=== PATIENT | female | born 1990 | race American Indian/Alaskan Native ===

== ENCOUNTER 2017-04-05 13:51 | Emergency (ER) | payer BC, MEDICAID ==
[~2017-04-05] VITALS: Ht 162.6 cm; Wt 105.0 kg
[2017-04-05] MEDS ORDERED: SODIUM CHLORIDE 0.9% 1,000ML IVBOLUS ONE ×2 (15:00→16:30)
[2017-04-05] MEDS ORDERED: SODIUM CHLORIDE FLUSH 10ML SYR IVF ONE (15:00)
[2017-04-05 15:31] LABS: HEMATOCRIT 31.3 % (34.6-47.8); WHITE BLOOD COUNT 9.6 x10^3/uL (3.4-10)
[2017-04-05 15:43] LABS: ASPARTATE AMINO TRANSFERASE 33 U/L (15-37); BLOOD UREA NITROGEN 6 mg/dL (7-18)
[2017-04-05] MEDS ORDERED: KETOROLAC 30 MG/1 ML IVPush ONE (16:00)
[2017-04-05] MEDS ORDERED: METOCLOPRAMIDE 5 MG/ML, 2ML IVPush ONE (16:00)
[2017-04-05] MEDS ORDERED: ACETAMINOPHEN 500 MG TABLET PO ONE (16:00)
[2017-04-05] MEDS ORDERED: ACETAMINOPHEN 500 MG TABLET ONE (16:07)
[2017-04-05] MEDS ORDERED: KETOROLAC 30 MG/1 ML ONE (16:07)
[2017-04-05] MEDS ORDERED: METOCLOPRAMIDE 5 MG/ML, 2ML ONE (16:07)
[2017-04-05] MEDS ORDERED: CEFTRIAXONE PMX 1GM/50ML 50 ML IVPB ONE (18:30)
[2017-04-05 19:20] VITALS: BP 115/71
== END 2017-04-05 19:22 | disposition home or self-care (01) ==
LOC: ED 17:33
DX: R50.9 Fever, unspecified (principal); R51 Headache
CPT/HCPCS: 36415; 71010; 80053; 81003; 83605; 84145; 85025; 87040; 87081; 87880; 93005; 96361; 96365; 96375; 99285; J0696; J1885; J2765; J7030

== ENCOUNTER 2017-08-23 17:49 | Emergency (ER) | payer BC, OTHER ==
[~2017-08-23] VITALS: Ht 162.6 cm; Wt 112.4 kg
[2017-08-23 17:51] VITALS: BP 162/106
== END 2017-08-23 19:24 | disposition home or self-care (01) ==
LOC: ED 18:45
DX: R05 Cough (principal); R09.81 Nasal congestion; R50.9 Fever, unspecified
CPT/HCPCS: 71046; 93005; 99284

== ENCOUNTER 2018-08-13 04:26 | Emergency (ER) | payer OTHER ==
[~2018-08-13] VITALS: Ht 162.6 cm; Wt 113.5 kg
--- NOTE | 2018-08-13 04:51 | NUR ---
KAIDEN Bob TO BEDSIDE, PT REPORTS SLIGHT RELIF AFTER GI COCKTAIL, PRIMARY TENDERNESS IS EPIGASTRIC
[2018-08-13] MEDS ORDERED: MAALOX/HYOSCYAMINE/LIDOCAINE 45 ML BTL ONE (04:57)
[2018-08-13] MEDS ORDERED: MAALOX/HYOSCYAMINE/LIDOCAINE 45 ML BTL PO ONE (05:00)
--- NOTE | 2018-08-13 05:00 | NUR ---
PT TO US VIA STRETCHER
--- NOTE | 2018-08-13 05:22 | NUR ---
PT RETURN FROM RADIOLOGY
--- NOTE | 2018-08-13 05:40 | NUR ---
PT RESTING MORE COMFORTABLY, AWARE OF NEED FOR URINE SPECIMEN, CALL HANKS IN REACH AND AT BEDSIDE. LAB TO ROOM FOR DRAW. PT NOW UP TO BATHROOM TO VOID. VERY PLEASANT LADY.
[2018-08-13 05:53] LABS: MEAN CORPUSCULAR HEMOGLOBIN 16.4 pg (27.0-34.8); MEAN CORPUSCULAR VOLUME 55.1 fL (80-100); MEAN PLATELET VOLUME 6.6 fL (7.4-10.4); PLATELET COUNT 398 x10^3/uL (130-400); RED BLOOD COUNT 5.05 x10^6/uL (3.82-5.3); RED CELL DISTRIBUTION WIDTH 21.5 % (9.6-15.2)
[2018-08-13 05:57] LABS: ALANINE AMINOTRANSFERASE 76 U/L (12-78); ANION GAP 5 mmol/L (5-15); CALCIUM 7.9 mg/dL (8.5-10.1); CHLORIDE 112 mmol/L (98-107); CREATININE 0.68 mg/dL (0.55-1.02)
[2018-08-13 06:01] LABS: ALKALINE PHOSPHATASE 139 U/L (45-117); BILIRUBIN,TOTAL 0.9 mg/dL (0.2-1.0); TOTAL PROTEIN 7.2 g/dL (6.4-8.2)
[2018-08-13 06:17] VITALS: BP 117/61
[2018-08-13 06:23] LABS: MICROSCOPIC INDICATED
[2018-08-13 06:24] LABS: CULTURE INDICATED? NO
[2018-08-13 06:26] LABS: BASOPHILS # (AUTO) 0.06 x10^3/uL (0-0.1); BASOPHILS % (AUTO) 1 % (0-1); EOSINOPHILS # (AUTO) 0.25 x10^3/uL (0-0.4); EOSINOPHILS % (AUTO) 3 % (1-7); LYMPHOCYTES % (AUTO) 19 % (22-44); MD MORPH REVIEW ONLY; MONOCYTES # (AUTO) 0.59 x10^3/uL (0.2-0.8); MONOCYTES % (AUTO) 7 % (2-9); NEUTROPHILS % (AUTO) 71 % (42-75)
[2018-08-13 06:27] LABS: ANISOCYTOSIS 2+; HYPOCHROMIA 1+; MEAN CORPUSCULAR HGB CONC 29.8 g/dL (32.4-35.8); MICROCYTOSIS 3+
[2018-08-13 06:28] LABS: OVALOCYTES 1+; POLYCHROMASIA 1+
[2018-08-13 06:30] LABS: <PLATELET ESTIMATE> ADEQUATE; <PLT MORPHOLOGY> NORMAL PLT MORPH
--- NOTE | 2018-08-13 06:39 | NUR ---
PT ANEMIC PER LABS, HAS HISTORY OF SAME, GUIAC NEGATIVE. DR MUNIZ TO ROOM TO TALK WITH PT AT THIS TIME.
== END 2018-08-13 07:11 | disposition home or self-care (01) ==
LOC: ED 06:07
DX: K21.0 Gastro-esophageal reflux disease with esophagitis (principal); R10.13 Epigastric pain; D53.9 Nutritional anemia, unspecified
CPT/HCPCS: 36415; 71045; 76700; 80053; 81001; 83690; 84703; 85025; 93005; 99284

== ENCOUNTER 2020-02-13 03:28 | Emergency (ER) | payer OTHER ==
[~2020-02-13] VITALS: Ht 162.6 cm; Wt 111.5 kg
--- NOTE | 2020-02-13 03:30 | NUR ---
pt BIB ambulance c/o S/O palpitations that woke her up tonight with CP, slight nausea and intermittent SOB. pt has no cardiac hx. pt reports that she has had some relief of pain after meds [employer] EDUCATION. upon admit, pt is A&O, calm and cooperative. pink warm and dry. no apparent resp. distress. no family at bedside. Mckenna RICHEY at bedside for eval
[2020-02-13] MEDS ORDERED: IRON15TA3 PO (03:34)
--- NOTE | 2020-02-13 03:50 | NUR ---
EKG has been to bedside CXR has been to bedside lab has been to bedsdie to draw pt has been ambulated to BR with standby, well tolerated pt resting in position of comfort
[2020-02-13 03:57] LABS: BASOPHILS # (AUTO) 0.06 x10^3/uL (0-0.1); BASOPHILS % (AUTO) 1 % (0-1); EOSINOPHILS # (AUTO) 0.47 x10^3/uL (0-0.4); EOSINOPHILS % (AUTO) 5 % (1-7); LYMPHOCYTES # (AUTO) 1.72 x10^3/uL (1-3.4); LYMPHOCYTES % (AUTO) 18 % (22-44); MD NO; MEAN CORPUSCULAR HEMOGLOBIN 21.3 pg (27.0-34.8); MEAN CORPUSCULAR HGB CONC 31.9 g/dL (32.4-35.8); MEAN PLATELET VOLUME 6.9 fL (7.4-10.4); MONOCYTES # (AUTO) 0.76 x10^3/uL (0.2-0.8); MONOCYTES % (AUTO) 8 % (2-9); NEUTROPHILS # (AUTO) 6.78 x10^3/uL (1.8-6.8); NEUTROPHILS % (AUTO) 69 % (42-75); PLATELET COUNT 422 x10^3/uL (130-400); RED BLOOD COUNT 5.48 x10^6/uL (3.82-5.3); RED CELL DISTRIBUTION WIDTH 18.9 % (9.6-15.2)
[2020-02-13] MEDS ORDERED: MAALOX/HYOSCYAMINE/LIDOCAINE 45 ML BTL PO ONE (04:00)
[2020-02-13 04:06] LABS: ALBUMIN 3.1 g/dL (3.4-5.0); ANION GAP 5 mmol/L (5-15); CALCIUM 8.2 mg/dL (8.5-10.1); CHLORIDE 110 mmol/L (98-107)
[2020-02-13] MEDS ORDERED: MAALOX/HYOSCYAMINE/LIDOCAINE 45 ML BTL ONE (04:06)
[2020-02-13 04:08] VITALS: BP 142/87
--- NOTE | 2020-02-13 04:10 | NUR ---
pt medicated for pain. resting in position of comfort. pt advised not to drive after GI cocktail. pt verbalized understanding
[2020-02-13 04:18] LABS: ALANINE AMINOTRANSFERASE 63 U/L (12-78); ALKALINE PHOSPHATASE 146 U/L (45-117); BILIRUBIN,TOTAL 0.5 mg/dL (0.2-1.0); CREATININE 0.73 mg/dL (0.55-1.02); TOTAL PROTEIN 7.7 g/dL (6.4-8.2); TROPONIN I < 0.015 ng/mL (0.000-0.045)
[2020-02-13 04:33] LABS: FREE T4 (FREE THYROXINE) 1.23 ng/dL (0.76-1.46)
== END 2020-02-13 05:28 | disposition home or self-care (01) ==
LOC: ED 03:58
DX: R07.89 Other chest pain (principal); R00.2 Palpitations; R94.6 Abnormal results of thyroid function studies; K21.9 Gastro-esophageal reflux disease without esophagitis; R94.31 Abnormal electrocardiogram [ECG] [EKG]
CPT/HCPCS: 36415; 71045; 80053; 83690; 84439; 84443; 84484; 84703; 85025; 93005; 99285

== ENCOUNTER 2020-05-04 17:39 | Emergency (ER) | payer OTHER ==
[~2020-05-04] VITALS: Ht 162.6 cm; Wt 115.0 kg
[~2020-05-04 17:39] MED LIST: IRON15TA3 PO
[2020-05-04] MEDS ORDERED: SODIUM CHLORIDE FLUSH 10ML SYR IVF ONE (18:00)
[2020-05-04] MEDS ORDERED: PLEASE ENTER HEIGHT AND WEIGHT MC SCH (18:00)
--- NOTE | 2020-05-04 18:27 | NUR ---
PT C/O HEADACHE THAT STARTED 2 WEEKS AGO. PT HAS MILD RELIEF FROM CBD OINTMENT. PAIN /10. PT STATES THIS HEADACHE IS DIFFERENT THAN HER NORMAL MIGRAINES. PT HAS ALSO EXPERIENED DIZZINESS AND NUMBNESS/TINGLING IN LEFT HAND WITH THESE HEADACHES.
[2020-05-04] MEDS ORDERED: DIAZEPAM 5 MG/ML, 2ML IVPush ONE (19:00)
[2020-05-04] MEDS ORDERED: KETOROLAC 30 MG/1 ML IVPush ONE (19:00)
--- NOTE | 2020-05-04 19:03 | NUR ---
report received from mee gagnon
[2020-05-04] MEDS ORDERED: KETOROLAC 30 MG/1 ML ONE (19:09)
[2020-05-04] MEDS ORDERED: DIAZEPAM 5 MG/ML, 2ML ONE (19:09)
--- NOTE | 2020-05-04 19:23 | NUR ---
pt up to restroom, steady on feet. so at bedside
[2020-05-04 20:22] VITALS: BP 134/76
== END 2020-05-04 20:24 | disposition home or self-care (01) ==
LOC: ED 18:13
DX: G44.219 Episodic tension-type headache, not intractable (principal); K21.9 Gastro-esophageal reflux disease without esophagitis
CPT/HCPCS: 70450; 96374; 96375; 99284; J1885; J3360

== ENCOUNTER 2020-08-27 14:55 | Emergency (ER) | payer OTHER ==
[~2020-08-27] VITALS: Ht 162.6 cm; Wt 113.4 kg
[2020-08-27] MEDS ORDERED: KETOROLAC 30 MG/1 ML IM ONE (15:30)
[2020-08-27] MEDS ORDERED: CYCLOBENZAPRINE 10 MG TABLET PO ONE (15:30)
[2020-08-27] MEDS ORDERED: KETOROLAC 30 MG/1 ML ONE (15:41)
[2020-08-27] MEDS ORDERED: CYCLOBENZAPRINE 10 MG TABLET ONE (15:41)
[2020-08-27 15:48] LABS: BASOPHILS % (AUTO) 1 % (0-1); EOSINOPHILS % (AUTO) 1 % (1-7); LYMPHOCYTES % (AUTO) 13 % (22-44); MEAN CORPUSCULAR HEMOGLOBIN 20.4 pg (27.0-34.8); MEAN CORPUSCULAR HGB CONC 32.1 g/dL (32.4-35.8); MEAN PLATELET VOLUME 6.7 fL (7.4-10.4); MONOCYTES % (AUTO) 6 % (2-9); NEUTROPHILS % (AUTO) 78 % (42-75); PLATELET COUNT 389 x10^3/uL (130-400); RED BLOOD COUNT 5.49 x10^6/uL (3.82-5.3); RED CELL DISTRIBUTION WIDTH 17.6 % (9.6-15.2)
[2020-08-27 15:52] LABS: ALANINE AMINOTRANSFERASE 31 U/L (12-78); ALBUMIN 3.1 g/dL (3.4-5.0); ANION GAP 8 mmol/L (5-15); CALCIUM 8.5 mg/dL (8.5-10.1); CHLORIDE 109 mmol/L (98-107); CREATININE 0.67 mg/dL (0.55-1.02)
[2020-08-27 15:53] LABS: MD NO
--- NOTE | 2020-08-27 15:54 | NUR ---
LATE ENTRY: PT TO ED W CO INTERMITTENT, SHARP LEFT SIDED CHEST PAIN THAT RADIATES TO HER LEFT ARM. PT REPORTS PAIN IS ASSOCIATED WITH PALPITATIONS. DENIES NAUSEA/VOMITING/SYNCOPE/LE PAIN OR SWELLING. PT REPORTS HX OF ANXIETY, "THESE SYMPTOMS ARE WAY WORSE THAN WHAT I'M USE TO". PWD, NAD NOTED. BP/SPO2/ECG MONITOR IN PLACE. SINUS ON MONITOR. ERP AT BEDSIDE FOR INITIAL ASSESSMENT.
[2020-08-27 15:56] LABS: ALKALINE PHOSPHATASE 95 U/L (45-117); BILIRUBIN,TOTAL 0.6 mg/dL (0.2-1.0); TOTAL PROTEIN 7.5 g/dL (6.4-8.2); TROPONIN I < 0.015 ng/mL (0.000-0.045)
--- NOTE | 2020-08-27 15:59 | NUR ---
REPORT TO ASMITA MCCARTY
--- NOTE | 2020-08-27 16:00 | NUR ---
pt in bed with monitor car operator in place and bed rails up bilaterally, call light in hand. pt complaining of 7/10 left sided chest pain, no signs or symptoms of acute dsitress noted respirations even and unlabored. pt denies need or questions at this time. lights low in room for comfort.
[2020-08-27 16:21] VITALS: BP 139/84
== END 2020-08-27 16:33 | disposition home or self-care (01) ==
LOC: ED 16:25
DX: R07.89 Other chest pain (principal); K21.9 Gastro-esophageal reflux disease without esophagitis; E66.9 Obesity, unspecified
CPT/HCPCS: 36415; 71045; 80053; 84484; 85025; 93005; 96372; 99285; J1885

== ENCOUNTER 2021-02-08 10:58 | Outpatient (CLI) | payer OTHER ==
[~2021-02-08] VITALS: Ht 162.6 cm; Wt 104.5 kg
[2021-02-08] MEDS ORDERED: BUTALB/APAP/CAFFEINE 50MG/325MG/40MG PO PRN (11:30)
[2021-02-08] MEDS ORDERED: BUTALB/APAP/CAFFEINE 50MG/325MG/40MG ONE (11:33)
[2021-02-08 11:54] LABS: CREATININE,URINE RANDOM 38.3 mg/dL
[2021-02-08 12:10] LABS: MICROSCOPIC INDICATED
[2021-02-08 12:50] LABS: BASOPHILS % (AUTO) 1 % (0-1); EOSINOPHILS % (AUTO) 1 % (1-7); LYMPHOCYTES % (AUTO) 18 % (22-44); MEAN CORPUSCULAR HEMOGLOBIN 20.5 pg (27.0-34.8); MEAN CORPUSCULAR HGB CONC 31.9 g/dL (32.4-35.8); MEAN PLATELET VOLUME 6.5 fL (7.4-10.4); MONOCYTES % (AUTO) 6 % (2-9); NEUTROPHILS % (AUTO) 75 % (42-75); PLATELET COUNT 336 x10^3/uL (130-400); RED CELL DISTRIBUTION WIDTH 18.5 % (9.6-15.2)
[2021-02-08 12:51] LABS: ALANINE AMINOTRANSFERASE 15 U/L (12-78); ALBUMIN 2.3 g/dL (3.4-5.0); ANION GAP 9 mmol/L (5-15); CHLORIDE 107 mmol/L (98-107); CREATININE 0.46 mg/dL (0.55-1.02)
[2021-02-08 12:54] LABS: ALKALINE PHOSPHATASE 122 U/L (45-117); BILIRUBIN,TOTAL 0.5 mg/dL (0.2-1.0); TOTAL PROTEIN 6.6 g/dL (6.4-8.2)
[2021-02-08 13:13] LABS: ANISOCYTOSIS 2+; HYPOCHROMIA 1+; MICROCYTOSIS 2+; POLYCHROMASIA 1+
[2021-02-08 13:14] LABS: <PLATELET ESTIMATE> ADEQUATE; <PLT MORPHOLOGY> NORMAL PLT MORPH; OVALOCYTES 1+; STOMATOCYTES 1+
== END 2021-02-08 13:56 | disposition home or self-care (01) ==
LOC: LDOP 10:58
PROVIDERS: ATTEND Student in an Organized Health Care Education/Training Program
DX: O26.893 Other specified pregnancy related conditions, third trimester (principal); G43.909 Migraine, unspecified, not intractable, without status migrainosus; O12.13 Gestational proteinuria, third trimester; Z3A.29 29 weeks gestation of pregnancy
CPT/HCPCS: 36415; 59025; 80053; 81001; 82570; 84156; 85025; 87086

== ENCOUNTER 2021-02-11 01:56 | Outpatient (CLI) | payer OTHER | END 2021-02-11 04:30 | disposition home or self-care (01) | LOC: LDOP 01:56 | PROVIDERS: ATTEND Student in an Organized Health Care Education/Training Program | DX: O99.613 Diseases of the digestive system complicating pregnancy, third trimester (principal); O29.43 Spinal and epidural anesthesia induced headache during pregnancy, third trimester; K80.20 Calculus of gallbladder without cholecystitis without obstruction; R10.9 Unspecified abdominal pain; Z3A.29 29 weeks gestation of pregnancy ==

== ENCOUNTER 2021-02-13 12:06 | Outpatient (CLI) | payer OTHER ==
[~2021-02-13] VITALS: Ht 162.6 cm; Wt 103.6 kg
[2021-02-13 12:26] VITALS: BP 116/66
== END 2021-02-13 13:57 | disposition home or self-care (01) ==
LOC: LDOP 12:06
PROVIDERS: ATTEND Student in an Organized Health Care Education/Training Program
DX: O29.43 Spinal and epidural anesthesia induced headache during pregnancy, third trimester (principal); Z3A.29 29 weeks gestation of pregnancy